=== PATIENT | female | born 1995 | race Asian ===

== ENCOUNTER → 2016-09-23 | Outpatient (CLI) | payer OTHER ==
[~2016-09-23] MED LIST: FERR1TAB23; PRENTAB26 PO
[2016-09-23 18:47] LABS: URINE APPEARANCE CLEAR (CLEAR); URINE BILIRUBIN NEG (NEG); URINE COLOR YELLOW; URINE NITRITE NEG (NEG); URINE PH 6.5 (4.5-7.5); URINE SPECIFIC GRAVITY 1.027 (1.000-1.030); UROBILINOGEN NEG (NEG)
[2016-09-23 18:51] LABS: MANUAL MICROSCOPIC REQUIRED? NO; REVIEW REQ? NO
== END | disposition home or self-care (01) ==
LOC: C.LABSPEC 18:18
PROVIDERS: ATTEND Obstetrics & Gynecology
DX: Z34.00 Encounter for supervision of normal first pregnancy, unspecified trimester (principal)

== ENCOUNTER → 2016-10-11 | Outpatient (CLI) | payer OTHER | END | disposition home or self-care (01) | LOC: C.PAPS 16:30 | PROVIDERS: ATTEND Obstetrics & Gynecology | DX: Z36 Encounter for antenatal screening of mother (principal) ==

== ENCOUNTER → 2016-10-11 | Outpatient (CLI) | payer OTHER ==
[2016-10-11 16:40] LABS: BASO % 0.1 %; BASO ABS # 0.01 K/uL (0-0.2); COMPLETE YES; EOS % 0.8 %; HEMATOCRIT 33.5 % (37-47); IG% 0.2 %; LYMPH % 26.2 %; LYMPH ABS # 2.18 K/uL (1.2-3.4); MEAN CORPUSCULAR HEMOGLOBIN 29.4 pg (25-34); MEAN CORPUSCULAR HGB CONC 34.6 g/dl (32-36); MEAN PLATELET VOLUME 10.8 fL (7.4-10.4); MONO % 5.2 %; NEUT % 67.5 %; PLATELET COUNT 171 K/uL (130-400); RED BLOOD COUNT 3.94 M/uL (4.2-5.4); WHITE BLOOD COUNT 8.33 K/uL (4.8-10.8)
[2016-10-11 18:16] LABS: GTGD 50 Grams
[2016-10-15 15:12] LABS: CHLAMYDIA TRACH RNA*** NOT DETECTED (NOT DETECTED); GC (NEIS GONORRHOEAE)RNA** NOT DETECTED (NOT DETECTED)
== END | disposition home or self-care (01) ==
LOC: C.LAB1850 15:22
PROVIDERS: ATTEND Obstetrics & Gynecology
DX: Z34.00 Encounter for supervision of normal first pregnancy, unspecified trimester (principal)

== ENCOUNTER → 2016-12-27 | Outpatient (CLI) | payer OTHER ==
[2016-12-27 15:30] LABS: URINE APPEARANCE CLEAR (CLEAR); URINE BILIRUBIN NEG (NEG); URINE COLOR DK YELLOW; URINE EPITHELIAL CELL AUTO >30 /lpf (0-5); URINE NITRITE NEG (NEG); URINE SPECIFIC GRAVITY 1.034 (1.000-1.030); UROBILINOGEN NEG (NEG)
[2016-12-27 15:42] LABS: MANUAL MICROSCOPIC REQUIRED? NO; REVIEW REQ? NO
== END | disposition home or self-care (01) ==
LOC: C.LABSPEC 14:52
PROVIDERS: ATTEND Obstetrics & Gynecology
DX: Z34.02 Encounter for supervision of normal first pregnancy, second trimester (principal)

== ENCOUNTER → 2016-12-27 | Outpatient (CLI) | payer OTHER ==
[2016-12-27 15:41] LABS: HEMATOCRIT 32.6 % (37-47)
[2016-12-27 17:59] LABS: GTGD 50 Grams
== END | disposition home or self-care (01) ==
LOC: C.LAB1850 13:52
PROVIDERS: ATTEND Obstetrics & Gynecology
DX: Z34.02 Encounter for supervision of normal first pregnancy, second trimester (principal)

== ENCOUNTER → 2017-02-20 | Outpatient (CLI) | payer OTHER | END | disposition home or self-care (01) | LOC: C.LABSPEC 17:46 | PROVIDERS: ATTEND Obstetrics & Gynecology | DX: Z34.03 Encounter for supervision of normal first pregnancy, third trimester (principal) ==

== ENCOUNTER 2017-02-27 12:24 | Outpatient (CLI) | payer OTHER ==
--- NOTE | 2017-02-27 14:22 | DIAGNOSTIC IMAGING REPORT ---
BIO PROF W/O NST-SINGLE CLINICAL HISTORY: IUGR TECHNIQUE: Ultrasound COMPARISON STUDY: None FINDINGS: biophysical profiles 8 out of possible 8. All required parameters are satisfied. IMPRESSION: 8 out of possible 8. Amniotic fluid index 13 cm. Cephalic presentation. The above report was generated using voice recognition software. It may contain grammatical, syntax or spelling errors. Electronically signed by: Nahid Wills M.D. 02/27/2017 2:21 PM Dictated Date/Time: 02/27/2017 2:18 PM
== END 2017-02-27 14:40 | disposition home or self-care (01) ==
LOC: C.OPB 12:24 → C.LD 12:25 → C.OPB 14:40
PROVIDERS: ATTEND Obstetrics & Gynecology
DX: O36.5930 Maternal care for other known or suspected poor fetal growth, third trimester, not applicable or unspecified (principal); Z3A.37 37 weeks gestation of pregnancy

== ENCOUNTER 2017-03-10 07:45 | Inpatient (IN) | payer OTHER ==
[~2017-03-10] VITALS: Ht 165.1 cm; Wt 55.9 kg
[2017-03-10] MEDS ORDERED: LACTATED RINGER'S 1000ML 1,000 ML IV PRN (07:52)
[2017-03-10] MEDS ORDERED: OXYTOCIN 30 UNITS/500ML NSS IV PRN ×2 (08:00→15:15)
[2017-03-10] MEDS ORDERED: LACTATED RINGER'S 1000ML 500 ML IV PRN ×2 (08:00→13:51)
[2017-03-10 08:44] LABS: HEMATOCRIT 36.9 % (37-47); MEAN CELL VOLUME 89.1 fL (80-100); MEAN CORPUSCULAR HEMOGLOBIN 30.7 pg (25-34); MEAN CORPUSCULAR HGB CONC 34.4 g/dl (32-36); MEAN PLATELET VOLUME 10.5 fL (7.4-10.4); PLATELET COUNT 159 K/uL (130-400); RED BLOOD COUNT 4.14 M/uL (4.2-5.4); WHITE BLOOD COUNT 6.02 K/uL (4.8-10.8)
[2017-03-10] MEDS: LACTATED RINGER'S 1000ML 1,000 ML IV SCH ×2 (09:05→13:58)
[2017-03-10 09:27] VITALS: Ht 165.1 cm; Wt 55.9 kg
[2017-03-10] MEDS ORDERED: PRENTAB26 PO (09:35)
[2017-03-10] MEDS ORDERED: FERR1TAB23 (09:35)
--- NOTE | 2017-03-10 10:06 | Medical Student: [facility] ---
Med Student History & Physical Date of Service Mar 10, 2017. Chief Complaint Induction History of Present Illness Source: patient, partner pt is a 21 yo F with BRENDON of 03/15/2017 by LMP at 39 and 2/7 weeks GA who presents for induction of labor. course has been followed by Kirk Ardon and is significant for IUGR. She reports feeling regular contractions every 5 minutes. Pt denies loss of fluid or bleeding. Reports good movement which tend to be more prominent in the evenings. Blood type B+, rubella immune, GBS negative, HBV negative, VDRL/RPR nonreactive , C/G negative, 1 hr GTT 120. CBC (03/10/2017 0827) Hgb 12.7 Hct 36.9 [employer] History Menarche at age 15, LMP 06/08/2016, no hx of abnormal pap smears Past Medical History "Premature beats that has never been treated medically" Family History Maternal grandmother had heart problem that required coronary bypass surgery Mother had heart problem and had to do a instead of vaginal delivery when delivery pt's brother Social History denies alcohol, smoking, or illicit drug use Smoking Status: Never Smoker Alcohol Use: none Drug Use: none Occupational Status: student Allergies Coded Allergies: Ampicillin (Verified Allergy, Intermediate, unknown, 04/17/14) Home Medications Ferrous Sulfate (Iron) Multivit/Min/Iron/Fol Ac/Pren ( Vitamin), 1 TAB PO DAILY Review of Systems Constitutional: No fever, No chills Eyes: No worsening of vision ENT: No hearing loss Respiratory: No cough, No shortness of breath Cardiovascular: No chest pain, No edema Abdomen: No pain Genitourinary - Female: No dysuria Physical Exam Vital Signs: Temp 36.8 c, BP 108/61, HR 114, RR 20 General Appearance: WD/WN, no apparent distress Respiratory/Chest: chest non-tender, lungs clear, normal breath sounds Cardiovascular: regular rate, rhythm, no edema, no murmur, + bradycardia (minor ) Abdomen / GI: non tender, soft Extremities: no calf tenderness, no pedal edema Skin: normal color Cervix exam on admission (performed by Dr. Rogers) Dilation: 2cm, Effacement: 50 %, station: -2. Monitoring External Monitor: Baseline HR 140, moderate variability, category I Tocodynamometer: contractions every 5 minutes Laboratory Results 03/10/17 08:27 Test 03/10/17 08:27 Red Blood Count 4.14 M/uL (4.2-5.4) Mean Corpuscular Volume 89.1 fL (80-100) Mean Corpuscular Hemoglobin 30.7 pg (25-34) Mean Corpuscular Hemoglobin Concent 34.4 g/dl (32-36) RDW Standard Deviation 52.4 fL (36.4-46.3) RDW Coefficient of Variation 16.0 % (11.5-14.5) Mean Platelet Volume 10.5 fL (7.4-10.4) Assessment and Plan Pt is a 21 yo F at 37 and 2/7 weeks GA with IUGR. tracing category I - Admit to L and D - Monitor mother and fetus - Induce labor with oxytocin - NPO except ice chips
[2017-03-10] MEDS ORDERED: BUPIVACAINE 0.25% 30 ML VIAL ONE (13:04)
[2017-03-10] MEDS ORDERED: EpHEDrine SULFATE INJ 50 MG/ML AMP ONE (13:04)
[2017-03-10] MEDS ORDERED: FENTANYL 2MCG/ML ROPIV 1.25MG/ML 100ML BAG EPI ONE (13:05)
[2017-03-10] MEDS ORDERED: FENTANYL CITRATE INJ 50 MCG/1 ML 2 ML VIAL ONE (13:05)
[2017-03-10] MEDS ORDERED: NALOXONE HCL INJ 1 MG in SODIUM CHLORIDE 0.9% 1000ML 1,000 ML IV PRN (13:51)
[2017-03-10] MEDS ORDERED: NALBUPHINE HCL INJ 10 MG/ML AMP IV PRN (14:00)
[2017-03-10] MEDS ORDERED: FENTANYL 2MCG/ML ROPIV 1.25MG/ML 100ML BAG EPI PRN (14:00)
[2017-03-10] MEDS ORDERED: ONDANSETRON INJ 2 MG/ML 2 ML VIAL IV PRN (14:00)
[2017-03-10] MEDS ORDERED: NALOXONE HCL INJ 0.4 MG/1 ML VIAL/CARP IV PRN (14:00)
[2017-03-10] MEDS ORDERED: DiphenhydrAMINE HCL 50 MG/ML VIAL IV PRN (14:00)
[2017-03-10] MEDS ORDERED: EpHEDrine SULFATE INJ 50 MG/ML AMP IV PRN (14:00)
--- NOTE | 2017-03-10 14:39 | Medical Student: [facility] ---
Medical Student Progress Note Date of Service Mar 10, 2017. (Vladimir Lujan) Progress Note Pt is a 21 y.o. F who presented this morning for induction. She reports doing well and received an epidural about an hour ago. monitoring shows a baseline HR of 120 with moderate variability, no accelerations, and early decelerations. AROM was performed and cervix on examination performed by Dr. Velarde shows 10/100/+1. Pt reports regular contractions and on tocodynamometer , contractions are regular and occur every 2 minutes (Vladimir Lujan)
[2017-03-10] MEDS ORDERED: ACETAMINOPHEN/CODEINE 300/30MG TAB PO PRN ×2 (15:15)
[2017-03-10] MEDS ORDERED: HYDROCORTISONE ACETATE 25 MG SUPP PR PRN (15:15)
[2017-03-10] MEDS ORDERED: OXYCODONE/ACETAMINOPHEN 5-325 TAB PO PRN (15:15)
[2017-03-10] MEDS ORDERED: BENZOCAINE 20% AER SPR 82.5 GM CAN EXT PRN (15:15)
[2017-03-10] MEDS ORDERED: LANOLIN OINT EXT PRN ×2 (15:15)
[2017-03-10] MEDS ORDERED: DIPHTHERIA/TETANUS/PERTUSSIS 0.5 ML SYR/VIAL IM. ONE (15:15)
[2017-03-10] MEDS ORDERED: ACETAMINOPHEN 325 MG TAB PO PRN (15:15)
[2017-03-10] MEDS ORDERED: SUPERCREAM 0.870 % 15GM JAR EXT PRN (15:15)
--- NOTE | 2017-03-10 15:51 | Vaginal Delivery Summary ---
Vaginal Delivery Summary Pt is a 21y/oF, EGA 39+2 who presented for induction this AM. She was dilated about 6cm prior to receiving the epidural. She became fully dilated in about an hour at 3pm. Head was delivered in MEREDITH over an intact perineum. Nuchal cord x 2. was placed onto mother's abdomen for stimulation. Cord was then clamped and cut on the abdomen. Nose and mouth were suctioned. was crying and moving all 4 limbs, APGARS 8, 9. Placenta was removed by gentle traction. Placenta was intact and had a 3 vessel cord. Hemostats was achieved by gentle massage of the uterus. 2nd degree perineal and left janae-clitoral lacerations was repaired. Cervix and rectum were intact. NOS=[id number]. Mother and child were doing well at the end of delivery. Dr. Ruddy Simmons, PGY1 (Ruddy Simmons M.D.) Resident Involvement: Resident Care Provided Care Provided: OB Delivery (Ruddy Simmons M.D.) Resident Involvement: Resident Care Provided Care Provided: OB Delivery (Yfn Velarde M.D.)
--- NOTE | 2017-03-10 15:54 | Medical Student: [facility] ---
Medical Student Delivery Note pt is a 21 yo F with BRENDON 03/15/2017 at GA 39 and 2/7 weeks who presented earlier today for induction. She received oxytocin and AROM. Pt received epidural for pain control and began pushing after becoming completely dilated and effaced. At 1452, a viable female infant with left occiput anterior presentation was born. Nuchal cord x2. Baby was suctioned in the mouth and the nares and placed on mother's chest for cleaning. Cord was doubly clamped at cut by father of baby. Mother suffered a 2nd degree perineal laceration and a left periurethral laceration and a left periclitoral laceration which were repaired with 2-0 Vicryl. A three-cord intact placenta was delivered with external uterine massage and gentle downward traction. Hemostasis was achieved with continued uterine massage. EBL 250cc. scores were 8 and 9. Mother and baby are doing well and recovering. (Vladimir Lujan)
--- NOTE | 2017-03-10 17:21 | Anesthesia Procedure Note ---
Anesthesia Epidural Removal Nt Date & Time Mar 10, 2017 at 17:21 Notes Mental Status: alert / awake / arousable, participated in evaluation Nausea / Vomiting: adequately controlled Pain: adequately controlled Airway Patency, RR, SpO2: stable & adequate BP & HR: stable & adequate Hydration State: stable & adequate Neuraxial Anesthesia: was administered, sensory block is resolving Anesthetic Complications: no major complications apparent, pt satisfied with anesthetic care Epidural: removed without complications, with tip intact
[2017-03-10] MEDS: DOCUSATE SODIUM 100 MG CAP PO SCH (20:24)
[2017-03-10 20:30] VITALS: BP 111/73; PULSE 81; TEMP 36.7; O2SAT 98
[2017-03-10 23:40] VITALS: BP 96/60; PULSE 76; TEMP 36.7
--- NOTE | 2017-03-11 02:25 | DELIVERY SUMMARY ---
DATE OF OPERATION: 03/10/2017 Mrs. Paz was induced on March 10, 2017, for suspected growth restriction at 39 weeks and 2 days completed. She was 2-3 cm and started on Pitocin. Group B strep negative. Her contractions progressed. She progressed to 6 cm, received in epidural and then afterwards had AROM, rapidly progressed to fully dilated and the delivered over only a couple of contractions in occiput anterior position. Live vigorous . Cord clamped and cut. Cord gasses obtained. Cord blood obtained. Placenta removed with gentle traction. IV Pitocin started. Uterus tone improved. Second tear repair with 3-0 Vicryl as well as a small left periurethral tear repaired as well. Urethral patency was insured after repair. Rectal exam negative for sutures. Sponge and instrument counts are correct. Estimated blood loss 250 mL. I attest to the content of the Intraoperative Record and any orders documented therein. Any exceptions are noted below. MTDD
[2017-03-11 04:00] VITALS: BP 98/61; PULSE 73; TEMP 36.8
--- NOTE | 2017-03-11 06:32 | OB/GYN Progress Note ---
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 Subjective conversation w/ patient, physical exam, chart review, lab review, review of inpatient medication list Ambulation: limited ambulation (walking to bathroom) Voiding: no voiding problems Diet Tolerance: Regular Diet Lochia: Small Feeding Type: Breast Feeding (And bottle feeding) Review of Systems Constitutional: + fever Respiratory: No shortness of breath Cardiac: No chest pain Abdomen: No nausea, No vomiting Female : No dysuria Objective Vital Signs Date Time Temp Pulse Resp B/P (MAP) Pulse Ox O2 Delivery O2 Flow Rate FiO2 03/11/17 04:00 36.8 73 18 98/61 (73) Room Air 03/10/17 23:45 Room Air 03/10/17 23:40 36.7 76 18 96/60 (72) Room Air 03/10/17 20:30 36.7 81 18 111/73 (86) 98 Room Air 03/10/17 20:30 98 Room Air Physical Exam General Appearance: WELL-APPEARING Respiratory/Chest: lungs clear, normal breath sounds, no respiratory distress Cardiovascular: regular rate, rhythm, no edema Abdomen: normal bowel sounds, soft Fundus: Firm, Relation to Umbilicus (At the umbilicus) Extremities: non-tender, normal inspection, no pedal edema Laboratory Results Last Resulted 03/10/17 08:27 Last 24 Hours Test 03/10/17 08:27 03/11/17 06:18 White Blood Count 6.02 K/uL Red Blood Count 4.14 M/uL Hemoglobin 12.7 g/dL Hematocrit 36.9 % Mean Corpuscular Volume 89.1 fL Mean Corpuscular Hemoglobin 30.7 pg Mean Corpuscular Hemoglobin Concent 34.4 g/dl RDW Standard Deviation 52.4 fL RDW Coefficient of Variation 16.0 % Platelet Count 159 K/uL Mean Platelet Volume 10.5 fL Medications Current Inpatient Medications Medications (Trade) Dose Ordered Sig/Richie Route Start Time Stop Time Status Last Admin Dose Admin Lactated Ringer's 1,000 ml @ 125 mls/hr Q8H IV 03/10/17 07:52 03/12/17 07:51 03/10/17 13:58 125 MLS/HR Lactated Ringer's 500 ml @ 999 mls/hr Q31M PRN IV 03/10/17 08:00 04/09/17 07:59 Oxytocin (Pitocin IV) 30 units UD PRN IV 03/10/17 15:15 04/09/17 15:14 Benzocaine (Dermoplast Aero Spr) 1 appln PRN PRN EXT 03/10/17 15:15 04/09/17 15:14 Cocaine HCl (Supercream 0.870% Cr) BID PRN EXT 03/10/17 15:15 03/24/17 15:14 Hydrocortisone Acetate (Anusol Hc Supp) 25 mg BID PRN IA 03/10/17 15:15 04/09/17 15:14 Lanolin (Lanolin Oint) PRN PRN EXT 03/10/17 15:15 04/09/17 15:14 Prenat Multivit/ Gibson/Iron/Folic Ac ( Vitamin Tab) 1 tab DAILY PO 03/11/17 08:00 04/10/17 07:59 Ibuprofen (Motrin Tab) 600 mg Q4H PRN PO 03/10/17 15:15 04/09/17 15:14 Acetaminophen (Tylenol Tab) 650 mg Q6H PRN PO 03/10/17 15:15 04/09/17 15:14 Acetaminophen/ Codeine Phosphate (Tylenol w/ Codeine #3 Tab) 1 tab Q4H PRN PO 03/10/17 15:15 04/09/17 15:14 Acetaminophen/ Codeine Phosphate (Tylenol w/ Codeine #3 Tab) 2 tab Q4H PRN PO 03/10/17 15:15 04/09/17 15:14 Bisacodyl (Dulcolax Tab) 5 mg 20 PO 03/11/17 20:00 03/11/17 20:01 Bisacodyl (Dulcolax Supp) 10 mg DAILY PRN IA 03/12/17 07:00 Docusate Sodium (coLACE CAP) 100 mg BID PO 03/10/17 20:00 04/09/17 19:59 03/10/17 20:24 100 MG Assessment and Plan Day Number: 1 Continue Routine Care: 21y/oF s/p induced NVD day 1 -Vitals wnl. Tmax: 36.8 -Hemoglobin reviewed 12.7 --> post delivery pending -Blood type: B+ antibody neg; GBS: negative; Rubella: immune -Pt is doing well clinically: reports limited ambulation and mild pain -Encourage ambulation, monitor lochia and control pain with motrin prn -Continue regular diet Resident Physician Supervision Note: I interviewed and examined the patient. Discussed with [Name of resident] and agree with findings and plan as documented in the note. Any exceptions or clarifications are listed here: [None] Documented By: Bao Velarde Resident Involvement: Resident Care Provided Care Provided: OB Delivery
--- NOTE | 2017-03-11 06:36 | Medical Student: [facility] ---
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 Subjective conversation w/ patient, physical exam, chart review, lab review Ambulation: limited ambulation (to bathroom) Voiding: no voiding problems Diet Tolerance: Regular Diet Lochia: Small Feeding Type: Breast Feeding (also bottle feeding) Pain: reports pain at site of laceration repair, has not requested pain meds Review of Systems Constitutional: No fever, No chills Respiratory: No cough, No shortness of breath Cardiac: No chest pain Abdomen: No pain, No nausea, No vomiting Female : + dysuria (had some minor pain with urination yesterday) Objective Vital Signs Date Time Temp Pulse Resp B/P (MAP) Pulse Ox O2 Delivery O2 Flow Rate FiO2 03/11/17 04:00 36.8 73 18 98/61 (73) Room Air 03/10/17 23:45 Room Air 03/10/17 23:40 36.7 76 18 96/60 (72) Room Air 03/10/17 20:30 36.7 81 18 111/73 (86) 98 Room Air 03/10/17 20:30 98 Room Air Physical Exam General Appearance: WELL-APPEARING, WD/WN, NO APPARENT DISTRESS Respiratory/Chest: chest non-tender, lungs clear Cardiovascular: regular rate, rhythm, no edema Abdomen: normal bowel sounds, non tender, soft Fundus: Firm, Non-Tender, Relation to Umbilicus (at umbilicus) Extremities: non-tender, normal inspection Laboratory Results Last 24 Hours Test 03/10/17 08:27 03/11/17 04:44 White Blood Count 6.02 K/uL Red Blood Count 4.14 M/uL Hemoglobin 12.7 g/dL Hematocrit 36.9 % Mean Corpuscular Volume 89.1 fL Mean Corpuscular Hemoglobin 30.7 pg Mean Corpuscular Hemoglobin Concent 34.4 g/dl RDW Standard Deviation 52.4 fL RDW Coefficient of Variation 16.0 % Platelet Count 159 K/uL Mean Platelet Volume 10.5 fL Assessment and Plan Post- Day Number: 1 Continue Routine Care: pt is a 21 yo F PPD#1 for NVD - vitals reviewed and stable - continue routine post vaginal delivery care - Pre-delivery hgb 12.7, post delivery hgb pending. Continue to monitor for bleeding. - encourage ambulation and - control pain with PRN pain meds Resident Physician Supervision Note: I interviewed and examined the patient. Discussed with [Name of resident] and agree with findings and plan as documented in the note. Any exceptions or clarifications are listed here: [None] Documented By: Bao Velarde
[2017-03-11 06:54] LABS: HEMATOCRIT 34.1 % (37-47)
[2017-03-11 07:23] VITALS: BP 97/62; PULSE 84; TEMP 36.8; O2SAT 97
[2017-03-11] MEDS: DOCUSATE SODIUM 100 MG CAP PO SCH ×2 (08:23→19:43)
[2017-03-11] MEDS: PRENATAL VITAMIN TAB PO SCH (08:23)
[2017-03-11] MEDS: IBUPROFEN 600 MG TAB PO PRN (10:00)
[2017-03-11 11:31] VITALS: BP 100/62; PULSE 76; TEMP 36.4; O2SAT 97
[2017-03-11 15:00] VITALS: BP 100/67; PULSE 78; TEMP 36.7; O2SAT 98
[2017-03-11] MEDS ORDERED: BISACODYL 5 MG TABEC PO SCH (20:00)
[2017-03-11 23:45] VITALS: BP 96/46; PULSE 69; TEMP 36.9; O2SAT 97
[2017-03-12] MEDS: IBUPROFEN 600 MG TAB PO PRN (01:07)
--- NOTE | 2017-03-12 06:36 | OB/GYN Progress Note ---
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 Subjective conversation w/ patient, physical exam, chart review, lab review Ambulation: ambulating normally Voiding: no voiding problems Diet Tolerance: Regular Diet Lochia: Small Feeding Type: Breast Feeding (and bottle feeding) Pain: 3/10 controlled with motrin Review of Systems Constitutional: No fever Cardiac: No chest pain Abdomen: No nausea, No vomiting Female : No dysuria Objective Vital Signs Date Time Temp Pulse Resp B/P (MAP) Pulse Ox O2 Delivery O2 Flow Rate FiO2 03/11/17 23:45 36.9 69 16 96/46 (63) 97 Room Air 03/11/17 23:45 Room Air 03/11/17 16:25 Room Air 03/11/17 15:00 36.7 78 16 100/67 (78) 98 Room Air 03/11/17 11:31 36.4 76 16 100/62 (75) 97 Room Air 03/11/17 08:45 Room Air 03/11/17 07:23 36.8 84 16 97/62 (74) 97 Room Air Physical Exam General Appearance: WELL-APPEARING Respiratory/Chest: lungs clear, normal breath sounds, no respiratory distress Cardiovascular: regular rate, rhythm, no edema Abdomen: normal bowel sounds, non tender, soft Fundus: Firm, Relation to Umbilicus (1 inch below umbilicus) Extremities: non-tender, normal inspection, no pedal edema Laboratory Results Last 24 Hours Test 03/12/17 06:19 Medications Current Inpatient Medications Medications (Trade) Dose Ordered Sig/Richie Route Start Time Stop Time Status Last Admin Dose Admin Lactated Ringer's 1,000 ml @ 125 mls/hr Q8H IV 03/10/17 07:52 03/12/17 07:51 03/10/17 13:58 125 MLS/HR Lactated Ringer's 500 ml @ 999 mls/hr Q31M PRN IV 03/10/17 08:00 04/09/17 07:59 Oxytocin (Pitocin IV) 30 units UD PRN IV 03/10/17 15:15 04/09/17 15:14 Benzocaine (Dermoplast Aero Spr) 1 appln PRN PRN EXT 03/10/17 15:15 04/09/17 15:14 03/11/17 08:55 1 APPLN Cocaine HCl (Supercream 0.870% Cr) BID PRN EXT 03/10/17 15:15 03/24/17 15:14 Hydrocortisone Acetate (Anusol Hc Supp) 25 mg BID PRN NM 03/10/17 15:15 04/09/17 15:14 Lanolin (Lanolin Oint) PRN PRN EXT 03/10/17 15:15 04/09/17 15:14 Prenat Multivit/ Wooden Barrel Mechanic/Iron/Folic Ac ( Vitamin Tab) 1 tab DAILY PO 03/11/17 08:00 04/10/17 07:59 03/11/17 08:23 1 TAB Ibuprofen (Motrin Tab) 600 mg Q4H PRN PO 03/10/17 15:15 04/09/17 15:14 03/12/17 01:07 600 MG Acetaminophen (Tylenol Tab) 650 mg Q6H PRN PO 03/10/17 15:15 04/09/17 15:14 Acetaminophen/ Codeine Phosphate (Tylenol w/ Codeine #3 Tab) 1 tab Q4H PRN PO 03/10/17 15:15 04/09/17 15:14 Acetaminophen/ Codeine Phosphate (Tylenol w/ Codeine #3 Tab) 2 tab Q4H PRN PO 03/10/17 15:15 04/09/17 15:14 Bisacodyl (Dulcolax Supp) 10 mg DAILY PRN NM 03/12/17 07:00 Docusate Sodium (coLACE CAP) 100 mg BID PO 03/10/17 20:00 04/09/17 19:59 03/11/17 19:43 100 MG Assessment and Plan Post- Day Number: 2 Continue Routine Care: A/P: This is a 21y/o female, , s/p induced normal vaginal delivery for IUGR. She is ambulating and clinically stable to discharge. - Vital signs are reviewed and WNL (Tmax 36.9) - Last Hgb 11.3 - Blood type B+, GBS neg, Rubella Immune - No signs of depression. - Routine care - Discussed resting, feeding, pain control, mastitis, control, follow up in 6 weeks and reasons to call sooner, if necessary. - Continue with pain medication as needed, and continue vitamins. - Encourage breast feeding and educate about breast feeding - Patient understands and keen for home. - Plan to discharge home Resident Physician Supervision Note: I was present with Dr. Simmons during the history and exam. I discussed the case with the resident and agree with the findings and plan as documented in the note. Any exceptions or clarifications are listed here: doing well, bottle and breast feeding. has some depressed mood with nursing and working with nursing about it. discussed f/u 6wks and pp instructions. reviewed baby blues. Documented By: Miryam Baer Resident Involvement: Resident Care Provided Care Provided: OB Delivery
[2017-03-12 06:58] LABS: HEMATOCRIT 34.2 % (37-47); MEAN CELL VOLUME 89.5 fL (80-100); MEAN CORPUSCULAR HEMOGLOBIN 30.9 pg (25-34); MEAN CORPUSCULAR HGB CONC 34.5 g/dl (32-36); MEAN PLATELET VOLUME 10.5 fL (7.4-10.4); PLATELET COUNT 142 K/uL (130-400); RED BLOOD COUNT 3.82 M/uL (4.2-5.4); WHITE BLOOD COUNT 9.06 K/uL (4.8-10.8)
[2017-03-12] MEDS ORDERED: BISACODYL 10 MG SUPP PR PRN (07:00)
--- NOTE | 2017-03-12 07:46 | Discharge Instructions ---
Discharge Instructions Date of Service Mar 12, 2017. Admission Reason for Admission: Induction Discharge Discharge Diagnosis / Problem: after delivery Discharge Goals Goal(s): Routine recovery after delivery Medications Continue Dispensed Medications: supercream, dermaplast, tucks, lansinoh Activity Recommendations Activity Limitations: as noted below . Instructions / Follow-Up Instructions / Follow-Up ACTIVITY RECOMMENDATIONS: * Gradual return to full activity over the next 2-3 weeks. * No lifting - nothing heavier than baby over the next 2-3 weeks. * Do not engage in vigorous exercise, sexual activity or sports until cleared by your physician. * Do not drive or operate any motorized equipment until cleared by your physician. * You may shower/bathe daily. MEDICATIONS: For discomfort or pain, you may use Acetaminophen (Tylenol), Ibuprofen (Advil), or Naproxen (Aleve) following the package directions. For constipation you may use Colace following the package directions. BREAST CARE: If you are not breast feeding: * Wear a supportive bra 24 hours a day for one to two weeks. * Avoid stimulating your breasts and nipples as much as possible during the first few weeks after delivery. * When taking a shower, have the warm water hit your back, not breasts. * When your breasts feel full, apply ice packs. Usually three to four times a day helps ease the discomfort. * Take a mild pain medication (Tylenol / Motrin) when you are uncomfortable. If breast feeding: * Use breast milk to lubricate nipples. Lansinoh cream may be used for sore nipples. You do not need to remove cream prior to breast feeding. If using a different brand of cream, check the label for directions regarding removal of cream prior to nursing. * Wear a supportive bra. * If having problems with breasts or breast feeding, call a [employer] consultant or your health care provider. EPISIOTOMY CARE: After delivery, if you have an episiotomy (stitches), the following steps will ease discomfort and aid healing. * For the first 24 hours after delivery, place ice packs next to your episiotomy to help reduce swelling. * After the first 24 hour-period, sitz baths, either portable or in the tub, are suggested. A shower with a shower arm sprayed over the episiotomy may be comforting. * Sammi care should be done after each voiding and bowel movement. Squirt warm water from a plastic bottle over the perineum (region of the body between the anus and urinary opening) and pat dry. * Use Dermoplast to ease discomfort. Shake container. [place] directly over the episiotomy. Place a Tucks on a clean sanitary pad next to your episiotomy. SPECIAL CARE INSTRUCTIONS: When you are discharged from the hospital, it is important for you to follow the instructions listed below: * During the first week at home, you should be able to care for yourself and your baby. In addition, the usual light household activities are encouraged. * Limit your activities to the way you feel. Do not try to clean the house or move furniture. Be sensible. * If you actively engage in sports and have done so up until the time of your delivery, you may resume these activities as soon as you feel able. This may take up to one month or even longer. Use good judgment. * Continue to take your vitamins for at least six weeks after the of your baby. * Your diet need not be limited unless you were on a special diet before your delivery. Breast-feeding mothers need around 2500 calories per day and at least 64-80 ounces of fluid per day (8 to 10 glasses). * You should eat foods from the four major food groups. Crash diets or fad diets are to be avoided. Eating lean meats, fresh fruits and vegetables, low-fat dairy products, high fiber foods and a regular exercise program, will help you get back to your pre- weight without putting your health at risk. * Constipation is sometimes a problem after delivery. Take a mild laxative as needed. If breast feeding, Milk of Magnesia is acceptable to use. You may use a suppository or Fleets enema if no episiotomy. * A daily shower or tub bath is suggested. Be sure to thoroughly and gently dry the perineum. * A bloody vaginal discharge will usually continue until around four weeks post . A small amount of bleeding may continue for as long as six weeks. Vaginal discharge changes from the bright red bleeding after delivery to pink then brownish and finally yellowish-pink before becoming white and disappearing. * Bleeding may increase with activity. Your first period may come in 4-8 weeks. If you are breast feeding, your period may be delayed even longer. * [place] (sex) can begin whenever both you and your partner feel comfortable and do not have any form of genital infection. It is recommended that you wait at least six weeks for internal and external healing to occur. If you have questions, please talk to your health care practitioner. A condom should be used to prevent infection and . * Foreplay, gentle intercourse and lubrication is very important the first several times to prevent pain. A water-based lubricant such as K-Y jelly or Astroglide may be used. * If you have RH negative blood and your baby is RH positive, you will receive RHOGAM by injection prior to discharge. The nurse will give you a card to keep with you that has the date and place that you received RHOGAM after delivery. * During your care, you had a Rubella screen done to check for the presence of rubella antibodies in your blood. If your test was negative, you will receive a Rubella vaccine prior to discharge. This vaccine may cause a fever, soreness at the injection site and flu-like symptoms. If these symptoms persist, notify your health care practitioner. is not advised for one month after a Rubella vaccine. * Verbalizes understanding of car seat law as reviewed with patient nursing. * Car Seat hand-out given and reviewed with patient by nursing. * Shaken baby information reviewed with patient by nursing. Call you doctor if: * Heavy bleeding (saturating several pads an hour) or passing clots the size of your fist. * A fever >101 degrees F (38.3 degrees C) on two occasions four hours apart and /or chills. * Unusual pain in the pelvic or vaginal areas. * "Baby Blues" lasting longer than two weeks. If you have any questions or concerns, call your health care practitioner at . FOLLOW UP VISIT: * Please call the office at to schedule a 6 week examination. It is important you keep this appointment. It is important for you to make arrangements for either yearly or twice yearly check-ups thereafter. Current Hospital Diet Patient's current hospital diet: Regular OB Diet Discharge Diet Recommended Diet: Regular Diet Pending Studies Studies pending at discharge: no Medical Emergencies . Who to Call and When: Medical Emergencies: If at any time you feel your situation is an emergency, please call 911 immediately. . Non-Emergent Contact Non-Emergency issues call your: Newspaper Copy Editor . . "Provider Documentation" section prepared by Ruddy Simmons. . VTE Core Measure Inpt VTE Proph given/why not?: Treatment not indicated
[2017-03-12 08:20] VITALS: BP 93/52; PULSE 84; TEMP 36.7
[2017-03-12] MEDS: PRENATAL VITAMIN TAB PO SCH (08:31)
[2017-03-12] MEDS: DOCUSATE SODIUM 100 MG CAP PO SCH (08:31)
[2017-03-12 13:41] VITALS: BP_DIAS 52; PULSE 84; TEMP 36.7
== END 2017-03-12 15:10 | disposition home or self-care (01) | DRG 775 ==
LOC: C.LD 07:45 → C.OBG 20:02
PROVIDERS: ADMIT Obstetrics & Gynecology; ATTEND Obstetrics & Gynecology
PROC: 10E0XZZ Delivery of Products of Conception, External Approach (ICD-10-PCS; principal; 2017-03-10)
PROC: 0KQM0ZZ Repair Perineum Muscle, Open Approach (ICD-10-PCS; principal; 2017-03-10)
PROC: 10907ZC Drainage of Amniotic Fluid, Therapeutic from Products of Conception, Via Natural or Artificial Opening (ICD-10-PCS; principal; 2017-03-10)
DX: O36.5930 Maternal care for other known or suspected poor fetal growth, third trimester, not applicable or unspecified (principal); O69.81X0 Labor and delivery complicated by cord around neck, without compression, not applicable or unspecified; O70.1 Second degree perineal laceration during delivery; Z3A.39 39 weeks gestation of pregnancy; Z37.0 Single live birth